=== PATIENT | female | born 1940 | race Caucasian/White ===

== ENCOUNTER → 2017-03-18 | Outpatient (CLI) | payer MEDICARE | END | disposition home or self-care (01) | LOC: RAD.S 09:25 | DX: R63.4 Abnormal weight loss (principal); R22.2 Localized swelling, mass and lump, trunk; E21.0 Primary hyperparathyroidism; R91.8 Other nonspecific abnormal finding of lung field; K44.9 Diaphragmatic hernia without obstruction or gangrene ==

== ENCOUNTER → 2017-03-27 | Outpatient (CLI) | payer MEDICARE | END | disposition home or self-care (01) | LOC: RAD.S 11:30 | DX: R22.1 Localized swelling, mass and lump, neck (principal) ==